=== PATIENT | male | born 1965 | race Caucasian/White ===

== ENCOUNTER 2018-09-05 20:44 | Emergency (ER) | payer OTHER ==
[~2018-09-05] VITALS: Ht 193 cm; Wt 83.9 kg
[2018-09-05] MEDS ORDERED: LIDOCAINE HCL 2% 20 ML VIAL ONE (21:24)
[2018-09-05] MEDS ORDERED: KETOROLAC TROMETHAMINE 30 MG INJ ONE ×2 (21:29→21:34)
[2018-09-05] MEDS ORDERED: KETOROLAC TROMETHAMINE 30 MG INJ IM ONE (21:30)
--- NOTE | 2018-09-05 21:38 | NUR ---
YAMILEX DENG at bedside for patient evaluation.
[2018-09-05] MEDS ORDERED: LIDOCAINE HCL 2% 20 ML VIAL IJ ONE (21:45)
--- NOTE | 2018-09-05 22:21 | NUR ---
Patient discharged to home in stable conditon. Written and verbal after care instructions given. Patient verbalizes understanding of instructions. Ambulated from ER with stable gait. All belongings with patient. VSS
[2018-09-05 22:22] VITALS: BP 127/78
== END 2018-09-05 22:23 | disposition home or self-care (01) ==
LOC: ER 20:45
DX: L72.3 Sebaceous cyst (principal); L02.416 Cutaneous abscess of left lower limb; F17.290 Nicotine dependence, other tobacco product, uncomplicated
CPT/HCPCS: 10060; 96372; 99284; 99406; J1885; J3490; A4663

== ENCOUNTER 2018-10-25 16:56 | Emergency (ER) | payer OTHER ==
[~2018-10-25] VITALS: Ht 193 cm; Wt 83.9 kg
--- NOTE | 2018-10-25 18:20 | NUR ---
DR GOOD SEEN AND EXAMIN THE PT.
[2018-10-25] MEDS ORDERED: IPRATROPIUM BROMIDE 0.5 MG/2.5 ML NEBU ONE (18:24)
[2018-10-25] MEDS ORDERED: ALBUTEROL SULFATE 2.5 MG/3 ML NEBU ONE (18:24)
[2018-10-25] MEDS ORDERED: predniSONE 10 MG TABLET ONE (18:29)
[2018-10-25] MEDS ORDERED: predniSONE 50 MG TABLET ONE (18:29)
[2018-10-25] MEDS ORDERED: IPRATROPIUM BROMIDE 0.5 MG/2.5 ML NEBU NEB ONE (18:30)
[2018-10-25] MEDS ORDERED: predniSONE 10 MG TABLET PO ONE (18:30)
[2018-10-25] MEDS ORDERED: ALBUTEROL SULFATE 2.5 MG/3 ML NEBU NEB ONE (18:30)
--- NOTE | 2018-10-25 19:15 | NUR ---
Patient discharged to home in stable conditon. Written and verbal after care instructions given. Patient verbalizes understanding of instructions.
== END 2018-10-25 19:16 | disposition home or self-care (01) ==
LOC: ER 16:58
DX: J40 Bronchitis, not specified as acute or chronic (principal); Z71.6 Tobacco abuse counseling; F17.290 Nicotine dependence, other tobacco product, uncomplicated
CPT/HCPCS: 94640; 99283; 99406; J7512 ×2; A4663; J3590

== ENCOUNTER 2022-03-10 10:05 | Emergency (ER) | payer SELFPAY ==
--- NOTE | 2022-03-10 10:25 | NUR ---
Attempted to triage pt multiple times but pt was not in ER waiting room or outside ER.
== END 2022-03-10 10:27 | disposition left against medical advice (07) ==
LOC: ER 10:06
DX: Z53.21 Procedure and treatment not carried out due to patient leaving prior to being seen by health care provider (principal)